=== PATIENT | male | born 1950 | race Caucasian/White ===

== ENCOUNTER 2018-01-26 08:30 | Inpatient (IN) ==
[2018-01-26 09:30] LABS: Bilirubin,Urine Small (Negative); Blood,Urine Negative (Negative); Clarity,Urine Clear (Clear); Color,Urine Orange (Yellow); Glucose,Urine (UA) Normal (Normal); Ketones,Urine Trace mg/dL (Negative); Leukocyte Esterase,Urine Small (Negative); Nitrite,Urine Negative (Negative); Protein,Urine 30 mg/dL (Neg-Trace); Specific Gravity,Urine > 1.030 (1.010-1.025); Urobilinogen,Urine Normal (Normal)
[2018-01-26 09:32] LABS: Hyaline Casts,Urine Few per lpf (None-Few); RBC,Urine 15-30 per hpf (0-3); Squamous Epithelial Cell,Urine Many per lpf (None-Few)
--- NOTE | 2018-01-26 09:33 | Emergency Department Note ---
Disposition Clinical Impression: Pneumonia Disposition: Admitted As Inpatient Referrals: Isabella Weiner MD [Primary Care Provider] - Forms: ED Satisfaction Letter SOB HPI - General Chief Complaint: ED Shortness of Breath/Dyspnea Stated Complaint: "TARA" Time Seen by Provider: 01/26/18 08:59 Source: patient Limitations: no limitations Nursing Notes Reviewed: Yes Vital Signs Reviewed: Yes - History of Present Illness 67-year-old male presents with shortness of breath. Patient stated the symptoms started on (5 days ago). It was gradually worsening. Associated with tightness of the chest on right side. Patient reported mild dry cough prior to shortness breath. Patient's reported patient seems a little confused today. Patient had a septic pneumonia 4 years ago. He was on inhaler since pain. Patient is a previous smoker. He quit smoking 20 years ago. He has never been diagnosed with COPD. His not on home oxygen. History of hypertension and back surgery. Denied past history of PE or DVT. Pt Subjective Complaint: shortness of breath, chest pain Onset (ago): day(s) (5) Severity: severe Consistency/Duration: constant, gradually worsening Known history of: other (septic pneumonia 4 years ago) Associated symptoms: Reports: other (confused) - Related Data Home Medications Medication Instructions Recorded Confirmed Atenolol [Tenormin] 25 mg PO DAILY 01/26/18 01/26/18 Atorvastatin [Lipitor] 40 mg PO HS 01/26/18 01/26/18 Gabapentin [Neurontin] 600 mg PO HS 01/26/18 01/26/18 Ibuprofen [Motrin] 600 mg PO Q8HR PRN 01/26/18 01/26/18 Tramadol HCl [Ultram] 100 mg PO TID PRN 01/26/18 01/26/18 Zolpidem [Ambien] 10 mg PO HS 01/26/18 01/26/18 amLODIPine [Norvasc] 5 mg PO DAILY 01/26/18 01/26/18 Allergies Allergy/AdvReac Type Severity Reaction Status Date / Time adhesive AdvReac Rash Verified 01/26/18 10:51 levofloxacin [From Levaquin] AdvReac Rash Verified 01/26/18 10:51 Constitutional: Denies: fever, chills, weakness, weight change Eyes: Denies: eye pain, eye discharge, vision change ENT ED: Denies: ear pain, throat pain, dental pain, hearing loss, epistaxis, congestion, dysphagia Cardiovascular: Reports: chest pain. Denies: palpitations, dyspnea on exertion , edema, syncope Respiratory: Reports: cough, dyspnea. Denies: wheezes, hemoptysis, stridor Gastrointestinal: Denies: abdominal pain, nausea, vomiting, diarrhea, constipation, hematemesis, melena, hematochezia Genitourinary: Denies: urgency, dysuria, frequency, hematuria Musculoskeletal: Denies: back pain, neck pain, arthralgia, myalgia Integumentary: Denies: rash, abrasion, lesions Neurological: Reports: confusion. Denies: headache, weakness, numbness, paresthesias, abnormal gait, vertigo Psychiatric: Denies: anxiety, depression, suicidal thoughts, homicidal thoughts , auditory hallucinations, visual hallucinations Endocrine: Denies: fatigue Hematological/Lymphatic: Denies: easy bleeding, easy bruising Allergic/Immunologic: Denies: facial swelling, urticaria Past Medical History - Past Medical History Medical history: Reports: no medical history Psychiatric history: Reports: no psych history - Social History Smoking Status: Never smoker Alcohol use: Reports: none Drug use: Reports: none Physical Exam - General Limitations: no limitations General appearance: alert, in no apparent distress - Head Head exam: atraumatic, normal inspection - Eye Eye exam: Present: normal appearance. Absent: scleral icterus, conjunctival injection - ENT ENT exam: normal exam, normal external ear exam - Neck Neck exam: Present: normal inspection, full ROM, trachea midline. Absent: tenderness - Chest Chest inspection: Present: normal inspection, symmetric chest wall rise. Absent : tenderness - Respiratory Respiratory exam: Present: normal lung sounds bilaterally, respiratory distress. Absent: wheezes - Cardiovascular Cardiovascular exam: Present: regular rate, normal rhythm - Abdominal Exam Abdominal exam: Present: soft, Non-Tender - Extremities Exam Extremities exam: Present: normal inspection, full ROM. Absent: tenderness - Back Exam Back exam: Present: normal inspection, full ROM. Absent: tenderness - Neurological Exam Neurological exam: Present: alert, oriented X3 - Psychiatric Psychiatric exam: Present: normal affect, normal mood - Skin Skin exam: Present: warm, dry, intact, normal color Course Vital Signs Temperature 98.6 F 01/26/18 08:34 Pulse Rate 101 01/26/18 08:34 Respiratory Rate 24 06/19/18 08:34 Blood Pressure 124/77 01/26/18 08:34 O2 Sat by Pulse Oximetry 88 01/26/18 08:34 Temperature 98.2 F 01/26/18 09:17 Pulse Rate 95 01/26/18 13:51 Respiratory Rate 18 01/26/18 13:51 Blood Pressure 127/88 01/26/18 13:51 O2 Sat by Pulse Oximetry 93 01/26/18 13:51 Oxygen Delivery Oxygen Delivery Nasal Cannula Shortness of Breath/Dyspnea - [facility] Narrative Medical decision making narrative: 67-year-old male presents with worsening shortness of breath for 5 days. Associated with right sided chest tightness and mild confusion today. No chills and fever. No recently hospitalized duration. History of pneumonia with sepsis. Physical exam: O2 sat 88 in room air, 93 with 2 L NS, Alert and oriented, lethargic, bilateral lungs sound clear to me, mild tachycardia with heart rate 100. No other focal neurology deficit. Labs: White cell 24 and left shifted, elevated d-dimer 2155, lactic acid normal. Chest x-ray indicated right lung pneumonia, chest CTA ruled out PE and confirmed pneumonia. Head CT unremarkable. Impression pneumonia with hypoxia. Patient will be admitted to hospital. Antibiotics started in ER. 14:[address] Baltazar ( hospitalist), patient is accepted to medical surgical floor. - Lab Data Lab results reviewed: Yes I reviewed the patient's lab results. Result diagrams: 01/26/18 09:30 01/26/18 09:30 Lab Results 01/26/18 01/26/18 01/26/18 Range/Units 08:52 09:30 09:30 WBC 24.5 H (4.3-11.1) K/mcL RBC 4.09 L (4.19-5.50) M/mcL Hgb 13.0 (12.9-16.9) g/dL Hct 37.4 L (37.5-50.1) % MCV 91.4 (83.0-100.0) fL MCH 31.8 (28.0-33.3) pg MCHC 34.8 (31.6-35.5) g/dL RDW 12.4 (11.5-14.5) % Plt Count 260 (140-400) K/mcL MPV 11.4 (9.4-12.4) fL Seg Neutrophils % 82.0 % Band Neutrophils % 12.0 H (0-4) % Lymphocytes % Test Not Performed Monocytes % 6.0 % Neutrophils # 23.0 H (1.6-8.9) K/mcL Lymphocytes # RU[employer]PLIC[employer] Monocytes # 1.5 H (0.0-1.3) K/mcL Toxic Vacuolation Present A (Not Present) Platelet Estimate Normal (Normal) D-Dimer 2155 H (0-500) ng/mLFEU Sodium (136-145) mEq/L Potassium (3.5-5.1) mEq/L Chloride (98-107) mEq/L Carbon Dioxide (23-29) mEq/L BUN (8-23) mg/dL Creatinine (0.70-1.30) mg/dL Est GFR ( Amer) (> 60) Est GFR (Non-Af Amer) (> 60) BUN/Creatinine Ratio (6-26) Glucose (70-105) mg/dL Calculated Osmolality (280-300) Lactic Acid (0.5-2.2) mmol/L Calcium (8.6-10.3) mg/dL Total Bilirubin (0.3-1.0) mg/dL AST (13-39) Units/L ALT (7-52) Units/L Alkaline Phosphatase (34-104) Units/L Troponin I (< 0.04) ng/mL Serum Total Protein (6.4-8.9) g/dL Albumin (3.5-5.7) g/dL Globulin (2.4-3.5) g/dL Albumin/Globulin Ratio (1.1-2.2) Urine Color [place] A (Yellow) Urine Clarity Clear (Clear) Urine pH 6.0 (5.0-8.0) pH Units Ur Specific [place] > 1.030 H (1.010-1.025) Urine Protein 30 H (Neg-Trace) mg/dL Urine Glucose (UA) Normal (Normal) mg/dL Urine Ketones Trace H (Negative) mg/dL Urine Blood Negative (Negative) Urine Nitrite Negative (Negative) Urine Bilirubin Small H (Negative) Urine Urobilinogen Normal (Normal) mg/dL Ur Leukocyte Esterase Small H (Negative) Urine Microscopic RBC 15-30 H (0-3) per hpf Urine Microscopic WBC 5-15 H (0-3) per hpf Ur Squamous Epith Cells Many H (None-Few) per lpf Urine Bacteria Moderate H (None-Few) per hpf Hyaline Casts Few (None-Few) per lpf Granular Casts Few H (None Seen) per lpf WBC Casts Few H (None Seen) per lpf Urine Mucus Many H (Few) Ur Culture Indicated? NO. A (NO) 01/26/18 01/26/18 Range/Units 09:30 12:45 WBC (4.3-11.1) K/mcL RBC (4.19-5.50) M/mcL Hgb (12.9-16.9) g/dL Hct (37.5-50.1) % MCV (83.0-100.0) fL MCH (28.0-33.3) pg MCHC (31.6-35.5) g/dL RDW (11.5-14.5) % Plt Count (140-400) K/mcL MPV (9.4-12.4) fL Seg Neutrophils % % Band Neutrophils % (0-4) % Lymphocytes % Monocytes % % Neutrophils # (1.6-8.9) K/mcL Lymphocytes # Monocytes # (0.0-1.3) K/mcL Toxic Vacuolation (Not Present) Platelet Estimate (Normal) D-Dimer (0-500) ng/mLFEU Sodium 138 (136-145) mEq/L Potassium 3.3 L (3.5-5.1) mEq/L Chloride 105 (98-107) mEq/L Carbon Dioxide 19 L (23-29) mEq/L BUN 18 (8-23) mg/dL Creatinine 0.85 (0.70-1.30) mg/dL Est GFR ( Amer) > 60 (> 60) Est GFR (Non-Af Amer) > 60 (> 60) BUN/Creatinine Ratio 21 (6-26) Glucose 110 H (70-105) mg/dL Calculated Osmolality 289 (280-300) Lactic Acid 1.3 (0.5-2.2) mmol/L Calcium 9.1 (8.6-10.3) mg/dL Total Bilirubin 1.3 H (0.3-1.0) mg/dL AST 16 (13-39) Units/L ALT 18 (7-52) Units/L Alkaline Phosphatase 86 (34-104) Units/L Troponin I 0.03 (< 0.04) ng/mL Serum Total Protein 6.5 (6.4-8.9) g/dL Albumin 3.3 L (3.5-5.7) g/dL Globulin 3.2 (2.4-3.5) g/dL Albumin/Globulin Ratio 1.0 L (1.1-2.2) Urine Color (Yellow) Urine Clarity (Clear) Urine pH (5.0-8.0) pH Units Ur Specific [place] (1.010-1.025) Urine Protein (Neg-Trace) mg/dL Urine Glucose (UA) (Normal) mg/dL Urine Ketones (Negative) mg/dL Urine Blood (Negative) Urine Nitrite (Negative) Urine Bilirubin (Negative) Urine Urobilinogen (Normal) mg/dL Ur Leukocyte Esterase (Negative) Urine Microscopic RBC (0-3) per hpf Urine Microscopic WBC (0-3) per hpf Ur Squamous Epith Cells (None-Few) per lpf Urine Bacteria (None-Few) per hpf Hyaline Casts (None-Few) per lpf Granular Casts (None Seen) per lpf WBC Casts (None Seen) per lpf Urine Mucus (Few) Ur Culture Indicated? (NO) - Radiology Data Radiology results reviewed: Yes I reviewed the patient's radiology results. TECHNIQUE: CTA of the chest was performed after the administration of intravenous contrast. Multiplanar reformatted images are provided for review. MIP images are provided for review. Dose modulation, iterative reconstruction, and/or weight based adjustment of the mA/kV was utilized to reduce the radiation dose to as low as reasonably achievable. COMPARISON: Chest x-ray done today HISTORY: ORDERING SYSTEM PROVIDED HISTORY: d-dimer >2000 72 ml of ISOVUE 370 FINDINGS: Pulmonary Arteries: Pulmonary arteries are adequately opacified for evaluation. No evidence of intraluminal filling defect to suggest pulmonary embolism. Main pulmonary artery is normal in caliber. Mediastinum: There is right hilar adenopathy likely reactive in nature. The right hilar node measures 1.4 cm in diameter. There is a subcarinal node measuring 1.4 cm in diameter. These are likely reactive in nature. No additional adenopathy is seen. Mild atherosclerotic disease seen in the aorta and coronary arteries. Lungs/pleura: There is consolidation seen involving nearly the entire right lower lobe consistent with pneumonia. Remainder of the lung parenchyma is clear and without disease. Upper Abdomen: Limited images of the upper abdomen are unremarkable. Soft Tissues/Bones: No acute bone or soft tissue abnormality. CT/CT angio chest IMPRESSION: Right lower lobe pneumonia with reactive adenopathy No evidence for pulmonary emboli
[2018-01-26 09:54] LABS: Bacteria,Urine Moderate per hpf (None-Few); Granular Casts,Urine Few per lpf (None Seen); Mucus,Urine Many (Few); White Blood Cell Casts,Urine Few per lpf (None Seen)
[2018-01-26 10:03] LABS: Hematocrit 37.4 % (37.5-50.1); Mean Corpuscular HGB Conc 34.8 g/dL (31.6-35.5); Mean Corpuscular Hemoglobin 31.8 pg (28.0-33.3); Mean Corpuscular Volume 91.4 fL (83.0-100.0); Mean Platelet Volume 11.4 fL (9.4-12.4); Platelet Count 260 K/mcL (140-400); Red Blood Count 4.09 M/mcL (4.19-5.50); Red Cell Distribution Width 12.4 % (11.5-14.5)
[2018-01-26 10:18] LABS: Alanine Aminotransferase 18 Units/L (7-52); Albumin 3.3 g/dL (3.5-5.7); Alkaline Phosphatase 86 Units/L (34-104); Aspartate Amino Transferase 16 Units/L (13-39); BUN/Creatinine Ratio 21 (6-26); Bilirubin,Total 1.3 mg/dL (0.3-1.0); Blood Urea Nitrogen 18 mg/dL (8-23); Calcium 9.1 mg/dL (8.6-10.3); Carbon Dioxide 19 mEq/L (23-29); Chloride 105 mEq/L (98-107); Globulin 3.2 g/dL (2.4-3.5); Glucose 110 mg/dL (70-105); Osmolality,Calculated 289 (280-300); Potassium 3.3 mEq/L (3.5-5.1); Sodium 138 mEq/L (136-145); Total Protein 6.5 g/dL (6.4-8.9); Troponin I 0.03 ng/mL (< 0.04); eGFR For African Americans > 60 (> 60); eGFR For Non-African Americans > 60 (> 60)
[2018-01-26] MEDS ORDERED: Isovue-370 500 ML INFUS..BTL IV ONE (10:18)
[2018-01-26 10:36] LABS: Monocytes # 1.5 K/mcL (0.0-1.3)
[2018-01-26 10:37] LABS: Platelet Estimate Normal (Normal)
[2018-01-26 10:38] LABS: Toxic Vacuolation Present (Not Present)
[2018-01-26] MEDS ORDERED: Piperacillin/Tazobactam 3.375 GM in 0.9 % Sodium Chloride Mini Bag 100 ML IVPB ONE (11:18)
--- NOTE | 2018-01-26 11:30 | Emergency Department Note ---
Disposition Clinical Impression: Pneumonia Qualifiers: Pneumonia type: due to unspecified organism Laterality: unspecified laterality Lung location: unspecified part of lung Qualified Code(s): J18.9 - Pneumonia, unspecified organism Disposition: Admitted As Inpatient Forms: ED Satisfaction Letter General Adult HPI - General Chief complaint: ED Shortness of Breath/Dyspnea Stated complaint: "TARA" Time Seen by Provider: 01/26/18 08:59 Source: patient Limitations: no limitations - History of Present Illness Pain Scale: 4 - Related Data Home Medications Medication Instructions Recorded Confirmed Atenolol [Tenormin] 25 mg PO DAILY 01/26/18 01/26/18 Atorvastatin [Lipitor] 40 mg PO HS 01/26/18 01/26/18 Gabapentin [Neurontin] 600 mg PO HS 01/26/18 01/26/18 Ibuprofen [Motrin] 600 mg PO Q8HR PRN 01/26/18 01/26/18 Tramadol HCl [Ultram] 100 mg PO TID PRN 01/26/18 01/26/18 Zolpidem [Ambien] 10 mg PO HS 01/26/18 01/26/18 amLODIPine [Norvasc] 5 mg PO DAILY 01/26/18 01/26/18 Allergies Allergy/AdvReac Type Severity Reaction Status Date / Time adhesive AdvReac Rash Verified 01/26/18 10:51 levofloxacin [From Levaquin] AdvReac Rash Verified 01/26/18 10:51 Constitutional: Denies: fever, chills, weakness, weight change Eyes: Denies: eye pain, eye discharge, vision change ENT ED: Denies: ear pain, throat pain, dental pain, hearing loss, epistaxis, congestion, dysphagia Cardiovascular: Reports: chest pain. Denies: palpitations, dyspnea on exertion , edema, syncope Respiratory: Reports: cough, dyspnea. Denies: wheezes, hemoptysis, stridor Gastrointestinal: Denies: abdominal pain, nausea, vomiting, diarrhea, constipation, hematemesis, melena, hematochezia Genitourinary: Denies: urgency, dysuria, frequency, hematuria Musculoskeletal: Denies: back pain, neck pain, arthralgia, myalgia Integumentary: Denies: rash, abrasion, lesions Neurological: Reports: confusion. Denies: headache, weakness, numbness, paresthesias, abnormal gait, vertigo Psychiatric: Denies: anxiety, depression, suicidal thoughts, homicidal thoughts , auditory hallucinations, visual hallucinations Endocrine: Denies: fatigue Hematological/Lymphatic: Denies: easy bleeding, easy bruising Allergic/Immunologic: Denies: facial swelling, urticaria Past Medical History - Past Medical History Medical history: Reports: no medical history Psychiatric history: Reports: no psych history - Social History Smoking Status: Never smoker Alcohol use: Reports: none Drug use: Reports: none Physical Exam - General Limitations: no limitations General appearance: alert, in no apparent distress Course Vital Signs Temperature 98.6 F 01/26/18 08:34 Pulse Rate 101 01/26/18 08:34 Respiratory Rate 24 01/26/18 08:34 Blood Pressure 124/77 01/26/18 08:34 O2 Sat by Pulse Oximetry 88 01/26/18 08:34 Temperature 98.2 F 01/26/18 09:17 Pulse Rate 76 01/26/18 10:18 Respiratory Rate 18 01/26/18 10:18 Blood Pressure 111/73 01/26/18 10:18 O2 Sat by Pulse Oximetry 93 01/26/18 10:18 Oxygen Delivery Oxygen Delivery Nasal Cannula Medical Decision Making - Lab Data Result diagrams: 01/26/18 09:30 01/26/18 09:30 Lab Results 01/26/18 01/26/18 01/26/18 Range/Units 08:52 09:30 09:30 WBC 24.5 H (4.3-11.1) K/mcL RBC 4.09 L (4.19-5.50) M/mcL Hgb 13.0 (12.9-16.9) g/dL Hct 37.4 L (37.5-50.1) % MCV 91.4 (83.0-100.0) fL MCH 31.8 (28.0-33.3) pg MCHC 34.8 (31.6-35.5) g/dL RDW 12.4 (11.5-14.5) % Plt Count 260 (140-400) K/mcL MPV 11.4 (9.4-12.4) fL Seg Neutrophils % 82.0 % Band Neutrophils % 12.0 H (0-4) % Lymphocytes % Test Not Performed Monocytes % 6.0 % Neutrophils # 23.0 H (1.6-8.9) K/mcL Lymphocytes # [employer] Monocytes # 1.5 H (0.0-1.3) K/mcL Toxic Vacuolation Present A (Not Present) Platelet Estimate Normal (Normal) D-Dimer 2155 H (0-500) ng/mLFEU Sodium (136-145) mEq/L Potassium (3.5-5.1) mEq/L Chloride (98-107) mEq/L Carbon Dioxide (23-29) mEq/L BUN (8-23) mg/dL Creatinine (0.70-1.30) mg/dL Est GFR ( Amer) (> 60) Est GFR (Non-Af Amer) (> 60) BUN/Creatinine Ratio (6-26) Glucose (70-105) mg/dL Calculated Osmolality (280-300) Calcium (8.6-10.3) mg/dL Total Bilirubin (0.3-1.0) mg/dL AST (13-39) Units/L ALT (7-52) Units/L Alkaline Phosphatase (34-104) Units/L Troponin I (< 0.04) ng/mL Serum Total Protein (6.4-8.9) g/dL Albumin (3.5-5.7) g/dL Globulin (2.4-3.5) g/dL Albumin/Globulin Ratio (1.1-2.2) Urine Color [place] A (Yellow) Urine Clarity Clear (Clear) Urine pH 6.0 (5.0-8.0) pH Units Ur Specific [place] > 1.030 H (1.010-1.025) Urine Protein 30 H (Neg-Trace) mg/dL Urine Glucose (UA) Normal (Normal) mg/dL Urine Ketones Trace H (Negative) mg/dL Urine Blood Negative (Negative) Urine Nitrite Negative (Negative) Urine Bilirubin Small H (Negative) Urine Urobilinogen Normal (Normal) mg/dL Ur Leukocyte Esterase Small H (Negative) Urine Microscopic RBC 15-30 H (0-3) per hpf Urine Microscopic WBC 5-15 H (0-3) per hpf Ur Squamous Epith Cells Many H (None-Few) per lpf Urine Bacteria Moderate H (None-Few) per hpf Hyaline Casts Few (None-Few) per lpf Granular Casts Few H (None Seen) per lpf WBC Casts Few H (None Seen) per lpf Urine Mucus Many H (Few) Ur Culture Indicated? NO. A (NO) 01/26/18 Range/Units 09:30 WBC (4.3-11.1) K/mcL RBC (4.19-5.50) M/mcL Hgb (12.9-16.9) g/dL Hct (37.5-50.1) % MCV (83.0-100.0) fL MCH (28.0-33.3) pg MCHC (31.6-35.5) g/dL RDW (11.5-14.5) % Plt Count (140-400) K/mcL MPV (9.4-12.4) fL Seg Neutrophils % % Band Neutrophils % (0-4) % Lymphocytes % Monocytes % % Neutrophils # (1.6-8.9) K/mcL Lymphocytes # Monocytes # (0.0-1.3) K/mcL Toxic Vacuolation (Not Present) Platelet Estimate (Normal) D-Dimer (0-500) ng/mLFEU Sodium 138 (136-145) mEq/L Potassium 3.3 L (3.5-5.1) mEq/L Chloride 105 (98-107) mEq/L Carbon Dioxide 19 L (23-29) mEq/L BUN 18 (8-23) mg/dL Creatinine 0.85 (0.70-1.30) mg/dL Est GFR ( Amer) > 60 (> 60) Est GFR (Non-Af Amer) > 60 (> 60) BUN/Creatinine Ratio 21 (6-26) Glucose 110 H (70-105) mg/dL Calculated Osmolality 289 (280-300) Calcium 9.1 (8.6-10.3) mg/dL Total Bilirubin 1.3 H (0.3-1.0) mg/dL AST 16 (13-39) Units/L ALT 18 (7-52) Units/L Alkaline Phosphatase 86 (34-104) Units/L Troponin I 0.03 (< 0.04) ng/mL Serum Total Protein 6.5 (6.4-8.9) g/dL Albumin 3.3 L (3.5-5.7) g/dL Globulin 3.2 (2.4-3.5) g/dL Albumin/Globulin Ratio 1.0 L (1.1-2.2) Urine Color (Yellow) Urine Clarity (Clear) Urine pH (5.0-8.0) pH Units Ur Specific [place] (1.010-1.025) Urine Protein (Neg-Trace) mg/dL Urine Glucose (UA) (Normal) mg/dL Urine Ketones (Negative) mg/dL Urine Blood (Negative) Urine Nitrite (Negative) Urine Bilirubin (Negative) Urine Urobilinogen (Normal) mg/dL Ur Leukocyte Esterase (Negative) Urine Microscopic RBC (0-3) per hpf Urine Microscopic WBC (0-3) per hpf Ur Squamous Epith Cells (None-Few) per lpf Urine Bacteria (None-Few) per hpf Hyaline Casts (None-Few) per lpf Granular Casts (None Seen) per lpf WBC Casts (None Seen) per lpf Urine Mucus (Few) Ur Culture Indicated? (NO) Attestation Statement - Attestation Attestation: I examined this patient and my medical decision-making was reviewed with the Resident Physician. I agree with the documented findings, disposition and treatment plan as described except to the extent set forth below. 67 year old male with history of sepsis seoncdary to pneumonia four years ago presnetes in a simliar fashion and meets SIRS criteria with tachy and elevated WBC. Patient states that he has been feeling increased more fatigued and also has an elevated D-dimer which will require a CTA chest to rule out PE. [place] ahs limited access thus we will consult PICC line team for access. WE have started zosyn tehrapy secondary to his allearyg to levaquin in addition he denies any history of DVTs/PEs , recent hospitalization or [facility] admission. WE will admi tot medicine after CTA chest
[2018-01-26] MEDS ORDERED: Ipratropium/Albuterol Neb 3 ML IH PRN (16:23)
--- NOTE | 2018-01-26 16:36 | Internal Med History&Physical ---
Date of Encounter: 01/26/18 Time of Encounter: 16:35 Internal Medicine - H&P: HPI Admitted From: Home Plans for Post Hospital Care: Home History of present illness: Mr. Campbell is a 67 year old male presented with shortness of breath that started a few days ago and got worse until this morning. He also had some tightness on the right side of the chest. In the emergency department patient was found to be hypoxic. He denied having any history of COPD but he does use inhaler twice daily was prescribed by his PCP. Patient is a remote smoker and quit smoking about 20 years ago. He has never been diagnosed with COPD. He denied any headache, blurry vision, abdominal pain, diarrhea or constipation. Past Med Surg Social Fam HX - Past Medical History Medical history: hypertension Additional medical history: pneumonia Psychiatric history: no psych history - Past Surgical History Surgical History: appendectomy Additional surgical history: knee replacement, gloria ksurgery - Social History Smoking Status: Former smoker Smokeless Tobacco Status: No Alcohol use: none Drug use: none - Family History Mother Hx Family Cardiac Disorders: Yes Father Hx Family Cardiac Disorders: Yes Internal Medicine - H&P: Meds Atenolol [Tenormin] 25 mg PO DAILY 01/26/18 [History] Atorvastatin [Lipitor] 40 mg PO HS 01/26/18 [History] Gabapentin [Neurontin] 600 mg PO HS 01/26/18 [History] Ibuprofen [Motrin] 600 mg PO Q8HR PRN 01/26/18 [History] Tramadol HCl [Ultram] 100 mg PO TID PRN 01/26/18 [History] Zolpidem [Ambien] 10 mg PO HS 01/26/18 [History] amLODIPine [Norvasc] 5 mg PO DAILY 01/26/18 [History] 3 Allergy/AdvReac Type Severity Reaction Status Date / Time adhesive AdvReac Rash Verified 01/26/18 10:51 levofloxacin [From Levaquin] AdvReac Rash Verified 01/26/18 10:51 All Systems PM: A 10-system review of systems was performed and is negative for pertinent findings except as documented above in the HPI. Review of systems: Comprehensive 10 point review of system was done and it was negative other than what was mentioned above - Constitutional Vitals: Temp Pulse Resp BP Pulse Ox 98.2 F 95 18 127/88 93 01/26/18 09:17 01/26/18 13:51 01/26/18 13:51 01/26/18 13:51 01/26/18 13:51 General appearance: Present: A&O X 3 - Head Head exam: Present: atraumatic, normocephalic - Eye Eye exam: Present: PERRL, conjuntiva pink, sclera anicteric Pupils: Present: PERRL - Neck Neck exam general surgery: Present: supple, trachea midline. Absent: lymphadenopathy - Respiratory Additional comments: Diminished breath sounds bibasilarly mostly on the right - Cardiovascular Cardiovascular exam: Present: RRR, +S1, +S2. Absent: diastolic murmur, gallop, rubs, systolic murmur - GI/Abdominal GI/Abdominal exam: Present: normal bowel sounds, soft, no peritoneal signs. Absent: distended, tenderness - Neurological Exam Neurological exam: Present: CN II-XII intact, oriented X3, no focal deficits. Absent: pronater drift, facial droop, speech deficit - Skin Skin exam: Present: dry, intact Internal Med - H&P Results - Labs CBC & Chem 7: 01/26/18 09:30 01/26/18 09:30 - Assessment and plan (1) SIRS (systemic inflammatory response syndrome) Current Visit: Yes Status: Acute Assessment and plan: Due to pneumonia. Patient has leukocytosis with bandemia Blood culture and sputum culture Start antibiotics with Zosyn and azithromycin Check lactic acid level. Check pro calcitonin Breathing treatment (2) Pneumonia Current Visit: Yes Status: Acute Assessment and plan: Start antibiotics with Zosyn and azithromycin as mentioned above Breathing treatment every 6 hours and when necessary Check pro calcitonin level. Check lactic acid level CTA chest was negative for PE, showed right lower lobe infiltrates Follow blood cultures and sputum cultures Check Legionella urine antigen and pneumococcal urine antigen Follow CBC Qualifiers: Pneumonia type: due to unspecified organism Laterality: right Lung location: lower lobe of lung Qualified Code(s): J18.1 - Lobar pneumonia, unspecified organism (3) Leukocytosis Current Visit: Yes Status: Acute Assessment and plan: Continue antibiotics as above Follow cultures Follow labs Qualifiers: Leukocytosis type: bandemia Qualified Code(s): D72.825 - Bandemia (4) Hypokalemia Current Visit: Yes Status: Acute Assessment and plan: Mild hypokalemia Replaced Monitor labs and replace lytes as needed (5) History of hypertension Current Visit: Yes Status: Acute Assessment and plan: Continue home antihypertensives Monitor BP (6) On esomeprazole prophylaxis Current Visit: Yes Status: Acute (7) DVT prophylaxis Current Visit: Yes Status: Acute - Time Spent With Patient Total time spent is greater than 50% in coordination of care (as documented) at patient's floor/unit and/or counseling patient:
[2018-01-26] MEDS: Azithromycin 500 MG in D5% in Water 250 ML IVPB SCH (17:17)
[2018-01-26] MEDS: Ipratropium/Albuterol Neb 3 ML IH SCH ×2 (19:43→23:30)
[2018-01-26] MEDS: Gabapentin 300 MG CAPSULE PO SCH (20:29)
[2018-01-26] MEDS: Piperacillin/Tazobactam 3.375 GM in 0.9 % Sodium Chloride Mini Bag 100 ML IVPB SCH (20:29)
[2018-01-26] MEDS: traMADol 50 MG TABLET PO PRN (20:30)
[2018-01-26] MEDS: Acetaminophen 325 MG TABLET PO PRN (20:31)
[2018-01-26] MEDS: Ibuprofen 600 MG TABLET PO PRN (23:50)
[2018-01-27] MEDS: Ipratropium/Albuterol Neb 3 ML IH SCH ×6 (03:35→23:59)
[2018-01-27] MEDS: *HR* Enoxaparin 40 MG/0.4 ML SYRINGE SQ SCH (05:39)
[2018-01-27] MEDS: Piperacillin/Tazobactam 3.375 GM in 0.9 % Sodium Chloride Mini Bag 100 ML IVPB SCH ×2 (05:40→10:59)
[2018-01-27 06:02] LABS: Basophils % 0.2 %; Eosinophils % 0.2 %; Hematocrit 27.1 % (37.5-50.1); Hemoglobin 9.1 g/dL (12.9-16.9); Immature Granulocytes % 1.5 % (0-4); Immature Platelets 4.9 % (1.1-6.1); Lymphocytes # 0.5 K/mcL (0.6-4.6); Lymphocytes % 3.1 %; Mean Corpuscular HGB Conc 33.6 g/dL (31.6-35.5); Mean Corpuscular Hemoglobin 31.7 pg (28.0-33.3); Mean Corpuscular Volume 94.4 fL (83.0-100.0); Mean Platelet Volume 11.2 fL (9.4-12.4); Monocytes # 1.2 K/mcL (0.0-1.3); Monocytes % 7.1 %; Neutrophils # 15.3 K/mcL (1.6-8.9); Platelet Count 205 K/mcL (140-400); Red Blood Count 2.87 M/mcL (4.19-5.50); Red Cell Distribution Width 12.7 % (11.5-14.5); Segmented Neutrophils % 87.9 %
[2018-01-27 06:13] LABS: BUN/Creatinine Ratio 21 (6-26); Blood Urea Nitrogen 18 mg/dL (8-23); Calcium 8.3 mg/dL (8.6-10.3); Carbon Dioxide 24 mEq/L (23-29); Chloride 109 mEq/L (98-107); Glucose 130 mg/dL (70-105); Osmolality,Calculated 296 (280-300); Potassium 3.5 mEq/L (3.5-5.1); Sodium 141 mEq/L (136-145); eGFR For African Americans > 60 (> 60); eGFR For Non-African Americans > 60 (> 60)
[2018-01-27] MEDS: amLODIPine 5 MG TABLET PO SCH (08:42)
[2018-01-27 10:38] LABS: Hematocrit 37.9 % (37.5-50.1); Hemoglobin 13.2 g/dL (12.9-16.9)
[2018-01-27] MEDS: Acetaminophen 325 MG TABLET PO PRN (10:58)
--- NOTE | 2018-01-27 14:51 | Electrocardiograph Report ---
[facility] Test Date: 2018-01-26 Pat Name: Donal Campbell Department: 103 Room: 3B32 Gender: M [employer]communications Sales Representative: : 1950 Requested By: Rajinder De La Torre Order Number: [id number] Reading MD: Josesito Horne Measurements Intervals [place] Rate: 81 P: 30 AL: 151 QRS: 17 QRSD: 98 T: 13 QT: 361 QTc: 399 Interpretive Statements SINUS RHYTHM WARNING: DATA QUALITY MAY AFFECT INTERPRETATION Electronically Signed On 01-27-2018 14:49:34 EDT by Josesito Horne
--- NOTE | 2018-01-27 15:45 | Internal Med Progress Note ---
Date of Encounter: 01/27/18 Time of Encounter: 10:05 - Assessment and plan (1) History of hypertension Current Visit: Yes Status: Chronic Assessment and plan: Chronic. Well controlled. Continue home medications. (2) Hypokalemia Current Visit: Yes Status: Resolved Assessment and plan: Resolved (3) Leukocytosis Current Visit: Yes Status: Acute Assessment and plan: Secondary to pneumonia. Improving. Continue IV antibiotics Blood and sputum cultures pending Continue to monitor labs. Qualifiers: Leukocytosis type: bandemia Qualified Code(s): D72.825 - Bandemia (4) On esomeprazole prophylaxis Current Visit: Yes Status: Acute (5) Pneumonia Current Visit: Yes Status: Acute Assessment and plan: Patient presented to the emergency department with shortness of breath that began 3-4 days prior to arrival, increasing in severity until the morning of admission. Family reports that he is been feeling fatigued while on a family vacation. Patient is requiring supplemental oxygen, does not normally wear oxygen at home. Patient was found to be hypoxic on arrival, patient using 4 L to maintain sats greater than 92%. Patient reports sometimes productive cough. Lungs are diminished with rhonchi heard in bilateral posterior bases. Continue IV Rocephin and Zithromax, duo nebs every 4 hours scheduled, guaifenesin milligrams by mouth twice daily. Continue to monitor labs and cultures Continue telemetry O2 as needed to maintain sats greater than 92% Qualifiers: Pneumonia type: due to unspecified organism Laterality: right Lung location: lower lobe of lung Qualified Code(s): J18.1 - Lobar pneumonia, unspecified organism (6) SIRS (systemic inflammatory response syndrome) Current Visit: Yes Status: Acute Assessment and plan: Secondary to pneumonia. Patient continues to have leukocytosis, fever. Patient has no tachycardia, no tachypnea, is normotensive. Continue IV antibiotics, continue to monitor labs and vital signs, patient condition. (7) Lumbar degenerative disc disease Current Visit: Yes Status: Chronic Assessment and plan: Chronic. Stable. Continue home pain medications as needed. (8) DVT prophylaxis Current Visit: Yes Status: Acute Assessment and plan: Lovenox (9) Acute respiratory failure with hypoxia Current Visit: Yes Status: Acute Assessment and plan: Secondary to pneumonia. Patient is requiring supplemental oxygen maintain sats greater than 92%. Patient does not normally wear oxygen at home. Continue pulse ox and telemetry Plan as above - Time Spent With Patient Total time spent is greater than 50% in coordination of care (as documented) at patient's floor/unit and/or counseling patient: less than 15 minutes - Subjective Interval history: Patient was seen and assessed at 10:05 AM. is at bedside. All questions were answered. Pt states that he is feeling some better than when he arrived, but reports that he is still feeling fatigued and short of breath. He also reports that he has had right flank pain and dark urine for the last 6 days. He denies any nausea, vomiting, diarrhea, headache, blurred vision, chest pain. Discussed with patient that he will be here for a couple of days, he is aware and verbalized understanding. - Constitutional Vitals: Temp Pulse Resp BP Pulse Ox 101.5 F H 89 18 126/78 91 01/27/18 10:52 01/27/18 10:52 01/27/18 10:52 01/27/18 10:52 01/27/18 10:52 General appearance: Present: cooperative, A&O X 3, pleasant, no acute distress, answers questions appropriately - Head Head exam: Present: atraumatic, normal inspection, normocephalic - Eye Eye exam: Present: normal appearance, conjuntiva pink, sclera anicteric - Neck Neck exam general surgery: Present: supple, trachea midline. Absent: lymphadenopathy, tenderness - Respiratory Respiratory exam: Present: CTAB. Absent: accessory muscle use, rales, rhonchi, wheezes - Cardiovascular Cardiovascular exam: Present: RRR, +S1, +S2. Absent: diastolic murmur, gallop, rubs, systolic murmur - GI/Abdominal GI/Abdominal exam: Present: normal bowel sounds, soft. Absent: distended, hepatomegaly, tenderness - Extremities Exam Extremities exam: Present: warm, radial pulses palpable and symmetrical. Absent : calf tenderness, cyanotic, pedal edema - Neurological Exam Neurological exam: Present: alert, oriented X3, no focal deficits. Absent: facial droop, speech deficit - Skin Skin exam: Present: dry, intact, normal color, warm. Absent: rash Internal Medicine: Result - Labs CBC & Chem 7: 01/27/18 10:23 01/27/18 05:30 Labs: Short CBC 01/27/18 01/27/18 Range/Units 05:30 10:23 WBC 17.4 H (4.3-11.1) K/mcL Hgb 9.1 L D 13.2 D (12.9-16.9) g/dL Hct 27.1 L 37.9 (37.5-50.1) % Plt Count 205 (140-400) K/mcL Neutrophils # 15.3 H (1.6-8.9) K/mcL BMP 01/27/18 05:30 Sodium 141 Potassium 3.5 Chloride 109 H Carbon Dioxide 24 BUN 18 Creatinine 0.86 Glucose 130 H Calcium 8.3 L - ABG Interpretation ABG results: PT/INR, D-dimer D-Dimer 2155 ng/mLFEU (0-500) H 01/26/18 09:30 - Impressions Impressions Chest X-Ray 01/27/18 04:17 IMPRESSION: No interval change of right lower lobe pneumonia. D/ / Paula Camargo MD / Paula Camargo MD Interpreting Provider: Paula Camargo MD Consult Discharge Plan - Plan Referrals: Isabella Weiner MD [Primary Care Provider] -
[2018-01-27] MEDS: cefTRIAXone 1,000 MG in Water for inj. (sterile) 20 ML 10 ML IVP SCH (16:38)
[2018-01-27] MEDS: Azithromycin 500 MG in D5% in Water 250 ML IVPB SCH (16:39)
[2018-01-27] MEDS: Ibuprofen 600 MG TABLET PO PRN (21:00)
[2018-01-27] MEDS: Gabapentin 300 MG CAPSULE PO SCH (21:01)
[2018-01-28] MEDS: Ipratropium/Albuterol Neb 3 ML IH SCH ×6 (03:57→23:40)
[2018-01-28] MEDS: *HR* Enoxaparin 40 MG/0.4 ML SYRINGE SQ SCH (05:22)
[2018-01-28 06:18] LABS: BUN/Creatinine Ratio 24 (6-26); Blood Urea Nitrogen 16 mg/dL (8-23); Carbon Dioxide 20 mEq/L (23-29); Chloride 111 mEq/L (98-107); Glucose 111 mg/dL (70-105); Osmolality,Calculated 294 (280-300); Potassium 3.7 mEq/L (3.5-5.1); Sodium 141 mEq/L (136-145); eGFR For African Americans > 60 (> 60); eGFR For Non-African Americans > 60 (> 60)
[2018-01-28 06:35] LABS: Basophils # 0.1 K/mcL (0.0-0.2); Basophils % 0.3 %; Eosinophils # 0.2 K/mcL (0.0-0.6); Hematocrit 36.7 % (37.5-50.1); Hemoglobin 12.6 g/dL (12.9-16.9); Immature Granulocytes % 1.7 % (0-4); Lymphocytes # 1.4 K/mcL (0.6-4.6); Lymphocytes % 6.6 %; Mean Corpuscular HGB Conc 34.3 g/dL (31.6-35.5); Mean Corpuscular Hemoglobin 31.8 pg (28.0-33.3); Mean Corpuscular Volume 92.7 fL (83.0-100.0); Mean Platelet Volume 11.6 fL (9.4-12.4); Monocytes # 1.8 K/mcL (0.0-1.3); Monocytes % 8.6 %; Neutrophils # 17.2 K/mcL (1.6-8.9); Platelet Count 251 K/mcL (140-400); Red Blood Count 3.96 M/mcL (4.19-5.50); Red Cell Distribution Width 12.8 % (11.5-14.5); Segmented Neutrophils % 81.8 %
[2018-01-28] MEDS: cefTRIAXone 1,000 MG in Water for inj. (sterile) 20 ML 10 ML IVP SCH (09:32)
[2018-01-28] MEDS: amLODIPine 5 MG TABLET PO SCH (09:32)
[2018-01-28 10:05] LABS: Bilirubin,Urine Negative (Negative); Blood,Urine Negative (Negative); Clarity,Urine Clear (Clear); Color,Urine Dark Yellow (Yellow); Glucose,Urine (UA) Normal (Normal); Ketones,Urine Negative (Negative); Leukocyte Esterase,Urine Negative (Negative); Nitrite,Urine Negative (Negative); PH,Urine 6.5 pH Units (5.0-8.0); Protein,Urine 30 mg/dL (Neg-Trace); Specific Gravity,Urine 1.026 (1.010-1.025); Urobilinogen,Urine Normal (Normal)
[2018-01-28 10:07] LABS: Bacteria,Urine None Seen per hpf (None-Few); Hyaline Casts,Urine None Seen per lpf (None-Few); RBC,Urine 15-30 per hpf (0-3); Squamous Epithelial Cell,Urine Many per lpf (None-Few); WBC,Urine 0-3 per hpf (0-3)
[2018-01-28 10:29] LABS: Renal Epithelial Cells,Urine Few per hpf (None-Few)
[2018-01-28 12:00] LABS: Basophils # 0.1 K/mcL (0.0-0.2); Basophils % 0.3 %; Eosinophils # 0.1 K/mcL (0.0-0.6); Eosinophils % 0.7 %; Hematocrit 37.6 % (37.5-50.1); Hemoglobin 12.9 g/dL (12.9-16.9); Immature Granulocytes % 1.3 % (0-4); Lymphocytes # 0.9 K/mcL (0.6-4.6); Lymphocytes % 5.1 %; Mean Corpuscular HGB Conc 34.3 g/dL (31.6-35.5); Mean Corpuscular Hemoglobin 31.4 pg (28.0-33.3); Mean Corpuscular Volume 91.5 fL (83.0-100.0); Mean Platelet Volume 10.9 fL (9.4-12.4); Monocytes # 1.2 K/mcL (0.0-1.3); Monocytes % 6.5 %; Neutrophils # 15.2 K/mcL (1.6-8.9); Platelet Count 295 K/mcL (140-400); Red Blood Count 4.11 M/mcL (4.19-5.50); Red Cell Distribution Width 12.9 % (11.5-14.5); Segmented Neutrophils % 86.1 %
[2018-01-28] MEDS: Acetaminophen 325 MG TABLET PO PRN ×2 (12:47→19:46)
[2018-01-28] MEDS: Azithromycin 500 MG in D5% in Water 250 ML IVPB SCH (16:04)
--- NOTE | 2018-01-28 16:56 | Internal Med Progress Note ---
Date of Encounter: 01/28/18 Time of Encounter: 09:50 - Assessment and plan (1) History of hypertension Current Visit: Yes Status: Chronic Assessment and plan: Chronic. Well controlled. Continue home medications. (2) Leukocytosis Current Visit: Yes Status: Acute Assessment and plan: Secondary to pneumonia. Increased this morning, redraw in the afternoon had improved. Continue to monitor for improved leukocytosis with new antibiotic. Continue IV antibiotics Blood culture still pending. Sputum culture negative. Continue to monitor labs. Qualifiers: Leukocytosis type: bandemia Qualified Code(s): D72.825 - Bandemia (3) On esomeprazole prophylaxis Current Visit: Yes Status: Acute (4) Pneumonia Current Visit: Yes Status: Acute Assessment and plan: Patient is intermittently still requiring supplemental oxygen, does not normally wear oxygen at home. Patient was found to be hypoxic on arrival, patient using 4 L to maintain sats greater than 92%. Patient reports sometimes productive cough. Lungs are diminished with rhonchi heard in bilateral posterior bases, some wheezing noted in bases as well. IV Rocephin and Zithromax have been stopped. Zosyn has been restarted, duo nebs every 4 hours scheduled, guaifenesin milligrams by mouth twice daily. Continue to monitor labs and cultures Continue telemetry O2 as needed to maintain sats greater than 92% Qualifiers: Pneumonia type: due to unspecified organism Laterality: right Lung location: lower lobe of lung Qualified Code(s): J18.1 - Lobar pneumonia, unspecified organism (5) SIRS (systemic inflammatory response syndrome) Current Visit: Yes Status: Acute Assessment and plan: Secondary to pneumonia. Patient continues to have leukocytosis, intermittent fever. Patient has no tachycardia, no tachypnea, is normotensive. IV antibiotics have been changed, continue to monitor labs and vital signs, patient condition. (6) Lumbar degenerative disc disease Current Visit: Yes Status: Chronic Assessment and plan: Chronic. Stable. Continue home pain medications as needed. (7) DVT prophylaxis Current Visit: Yes Status: Acute Assessment and plan: Lovenox subcutaneous (8) Acute respiratory failure with hypoxia Current Visit: Yes Status: Acute Assessment and plan: Secondary to pneumonia. Patient is intermittently still requiring supplemental oxygen maintain sats greater than 92%. Patient does not normally wear oxygen at home. Continue pulse ox and telemetry Plan as above (9) Hypokalemia Current Visit: Yes Status: Resolved Assessment and plan: Resolved. Continue to monitor. - Time Spent With Patient Total time spent is greater than 50% in coordination of care (as documented) at patient's floor/unit and/or counseling patient: less than 15 minutes - Subjective Interval history: Patient was seen and assessed at 0950 AM. Patient was alert and answered questions appropriately. He denies any nausea, vomiting, diarrhea, headache, blurred vision, chest pain. Patient denied discussed his increase in leukocytosis, fevers. I explained to him that we will be changing his antibiotic again today. He denies any questions. Later in the afternoon and received a call from primary nurse saying that the speak with me. Patient apparently had no recollection at me speaking to him earlier in the morning. Plan discussed with , questions answered. - Constitutional Vitals: Temp Pulse Resp BP Pulse Ox 99.5 F 88 16 127/79 91 01/28/18 16:15 01/28/18 16:15 01/28/18 16:15 01/28/18 16:15 01/28/18 16:15 General appearance: Present: cooperative, A&O X 3, pleasant, no acute distress, answers questions appropriately - Head Head exam: Present: atraumatic, normal inspection, normocephalic - Eye Eye exam: Present: normal appearance, conjuntiva pink, sclera anicteric - Neck Neck exam general surgery: Present: supple, trachea midline. Absent: lymphadenopathy, tenderness - Respiratory Respiratory exam: Present: decreased breath sounds, CTAB, rhonchi. Absent: accessory muscle use, chest wall tenderness, rales, respiratory distress, wheezes - Cardiovascular Cardiovascular exam: Present: RRR, +S1, +S2. Absent: diastolic murmur, gallop, rubs, systolic murmur - GI/Abdominal GI/Abdominal exam: Present: normal bowel sounds, soft. Absent: distended, hepatomegaly, tenderness - Extremities Exam Extremities exam: Present: normal capillary refill, normal inspection, warm, radial pulses palpable and symmetrical. Absent: calf tenderness, cyanotic, pedal edema, tenderness - Neurological Exam Neurological exam: Present: alert, oriented X3, no focal deficits. Absent: facial droop, speech deficit - Skin Skin exam: Present: dry, intact, normal color, warm. Absent: rash Internal Medicine: Result - Labs CBC & Chem 7: 01/28/18 11:45 01/28/18 05:38 Labs: Short CBC 01/28/18 01/28/18 Range/Units 05:38 11:45 WBC 21.1 H 17.6 H (4.3-11.1) K/mcL Hgb 12.6 L 12.9 (12.9-16.9) g/dL Hct 36.7 L 37.6 (37.5-50.1) % Plt Count 251 295 (140-400) K/mcL Neutrophils # 17.2 H 15.2 H (1.6-8.9) K/mcL BMP 01/28/18 01/28/18 05:38 07:23 Sodium 141 Potassium 3.7 Chloride 111 H Carbon Dioxide 20 L BUN 16 Creatinine 0.66 L Glucose 111 H Calcium TNP 8.1 L Urine 01/28/18 Range/Units 09:40 Urine Color Dark Yellow (Yellow) Urine Clarity Clear (Clear) Urine pH 6.5 (5.0-8.0) pH Units Ur Specific [place] 1.026 H (1.010-1.025) Urine Protein 30 H (Neg-Trace) mg/dL Urine Glucose (UA) Normal (Normal) mg/dL - ABG Interpretation ABG results: PT/INR, D-dimer D-Dimer 2155 ng/mLFEU (0-500) H 01/26/18 09:30 Consult Discharge Plan - Plan Referrals: Isabella Weiner MD [Primary Care Provider] -
[2018-01-28] MEDS: Gabapentin 300 MG CAPSULE PO SCH (20:30)
[2018-01-28] MEDS: traMADol 50 MG TABLET PO PRN (20:30)
[2018-01-28] MEDS: Ibuprofen 600 MG TABLET PO PRN (22:18)
[2018-01-28] MEDS: Piperacillin/Tazobactam 3.375 GM in 0.9 % Sodium Chloride Mini Bag 100 ML IVPB SCH (23:36)
[2018-01-29] MEDS: Ipratropium/Albuterol Neb 3 ML IH SCH ×6 (04:15→23:52)
[2018-01-29] MEDS: *HR* Enoxaparin 40 MG/0.4 ML SYRINGE SQ SCH (05:49)
[2018-01-29 06:29] LABS: Basophils # 0.1 K/mcL (0.0-0.2); Basophils % 0.7 %; Eosinophils # 0.4 K/mcL (0.0-0.6); Eosinophils % 2.9 %; Hematocrit 34.8 % (37.5-50.1); Hemoglobin 11.6 g/dL (12.9-16.9); Immature Granulocytes % 2.2 % (0-4); Lymphocytes # 0.9 K/mcL (0.6-4.6); Lymphocytes % 6.4 %; Mean Corpuscular HGB Conc 33.3 g/dL (31.6-35.5); Mean Corpuscular Hemoglobin 30.3 pg (28.0-33.3); Mean Corpuscular Volume 90.9 fL (83.0-100.0); Mean Platelet Volume 10.7 fL (9.4-12.4); Monocytes % 7.5 %; Neutrophils # 10.9 K/mcL (1.6-8.9); Platelet Count 301 K/mcL (140-400); Red Blood Count 3.83 M/mcL (4.19-5.50); Segmented Neutrophils % 80.3 %
[2018-01-29 06:49] LABS: BUN/Creatinine Ratio 16 (6-26); Blood Urea Nitrogen 10 mg/dL (8-23); Carbon Dioxide 20 mEq/L (23-29); Chloride 108 mEq/L (98-107); Glucose 117 mg/dL (70-105); Osmolality,Calculated 288 (280-300); Potassium 3.1 mEq/L (3.5-5.1); Sodium 139 mEq/L (136-145); eGFR For African Americans > 60 (> 60); eGFR For Non-African Americans > 60 (> 60)
[2018-01-29] MEDS: amLODIPine 5 MG TABLET PO SCH (08:59)
[2018-01-29] MEDS: Piperacillin/Tazobactam 3.375 GM in 0.9 % Sodium Chloride Mini Bag 100 ML IVPB SCH ×2 (09:00→17:18)
--- NOTE | 2018-01-29 13:57 | Internal Med Progress Note ---
Date of Encounter: 01/29/18 Time of Encounter: 09:25 - Assessment and plan (1) History of hypertension Current Visit: Yes Status: Chronic Assessment and plan: Chronic. Well controlled. Continue current medications. (2) Leukocytosis Current Visit: Yes Status: Acute Assessment and plan: Secondary to pneumonia. Improved this morning. Continue IV Zosyn Blood culture still pending. Sputum culture negative. Continue to monitor labs. Qualifiers: Leukocytosis type: bandemia Qualified Code(s): D72.825 - Bandemia (3) On esomeprazole prophylaxis Current Visit: Yes Status: Acute (4) Pneumonia Current Visit: Yes Status: Acute Assessment and plan: Patient is intermittently still requiring supplemental oxygen, no home 02. Patient reports sometimes productive cough. Lungs are diminished with rhonchi heard in bilateral posterior bases, improving. Continue IV Zosyn, Duonebs every 4 hours scheduled, guaifenesin 600mg by mouth twice daily. Continue to monitor labs and cultures Continue telemetry O2 as needed to maintain sats greater than 92% Qualifiers: Pneumonia type: due to unspecified organism Laterality: right Lung location: lower lobe of lung Qualified Code(s): J18.1 - Lobar pneumonia, unspecified organism (5) SIRS (systemic inflammatory response syndrome) Current Visit: Yes Status: Acute Assessment and plan: Secondary to pneumonia. Patient continues to have leukocytosis, intermittent fevers. Patient has no tachycardia, no tachypnea, is normotensive. Plan as above. (6) Lumbar degenerative disc disease Current Visit: Yes Status: Chronic Assessment and plan: Chronic. Continue Tylenol, Ultram.. (7) DVT prophylaxis Current Visit: Yes Status: Acute Assessment and plan: Lovenox SQ (8) Acute respiratory failure with hypoxia Current Visit: Yes Status: Acute Assessment and plan: Secondary to pneumonia. Patient is intermittently still requiring supplemental oxygen maintain sats greater than 92%. Continue pulse ox and telemetry Plan as above (9) Hypokalemia Current Visit: Yes Status: Resolved Assessment and plan: 3.1. Continue supplementation. Continue to monitor. - Time Spent With Patient Total time spent is greater than 50% in coordination of care (as documented) at patient's floor/unit and/or counseling patient: less than 15 minutes - Subjective Interval history: Patient was seen and assessed at 0925 AM. Patient was alert and answered questions appropriately. at bedside, all questions answered. He denies any nausea, vomiting, diarrhea, headache, blurred vision, chest pain. Plan discussed with , questions answered. - Constitutional Vitals: Temp Pulse Resp BP Pulse Ox 98.6 F 62 18 136/82 94 01/29/18 10:50 01/29/18 10:50 01/29/18 11:25 01/29/18 10:50 01/29/18 11:25 General appearance: Present: cooperative, A&O X 3, pleasant, no acute distress, answers questions appropriately - Head Head exam: Present: atraumatic, normal inspection, normocephalic - Eye Eye exam: Present: normal appearance, conjuntiva pink, sclera anicteric - Neck Neck exam general surgery: Present: supple, trachea midline. Absent: lymphadenopathy, tenderness - Respiratory Respiratory exam: Present: CTAB. Absent: accessory muscle use, rales, respiratory distress, rhonchi, wheezes - Cardiovascular Cardiovascular exam: Present: RRR, +S1, +S2. Absent: diastolic murmur, gallop, rubs, systolic murmur - GI/Abdominal GI/Abdominal exam: Present: normal bowel sounds, soft. Absent: distended, hepatomegaly, tenderness - Extremities Exam Extremities exam: Present: normal capillary refill, normal inspection, warm, radial pulses palpable and symmetrical. Absent: calf tenderness, cyanotic, pedal edema, tenderness - Neurological Exam Neurological exam: Present: alert, oriented X3, no focal deficits. Absent: pronater drift, facial droop, speech deficit - Skin Skin exam: Present: dry, intact, normal color, warm. Absent: rash Internal Medicine: Result - Labs CBC & Chem 7: 01/29/18 06:05 01/29/18 06:05 Labs: Short CBC 01/29/18 Range/Units 06:05 WBC 13.6 H (4.3-11.1) K/mcL Hgb 11.6 L (12.9-16.9) g/dL Hct 34.8 L (37.5-50.1) % Plt Count 301 (140-400) K/mcL Neutrophils # 10.9 H (1.6-8.9) K/mcL BMP 01/29/18 06:05 Sodium 139 Potassium 3.1 L Chloride 108 H Carbon Dioxide 20 L BUN 10 Creatinine 0.63 L Glucose 117 H Calcium 8.0 L - ABG Interpretation ABG results: PT/INR, D-dimer D-Dimer 2155 ng/mLFEU (0-500) H 01/26/18 09:30 Consult Discharge Plan - Plan Referrals: Isabella Weiner MD [Primary Care Provider] - 02/04/18 3:00 pm
[2018-01-29] MEDS: Ibuprofen 600 MG TABLET PO PRN (14:20)
[2018-01-29] MEDS ORDERED: Benzonatate 100 MG CAPSULE PO PRN (17:04)
[2018-01-29] MEDS: Gabapentin 300 MG CAPSULE PO SCH (20:36)
[2018-01-29] MEDS: traMADol 50 MG TABLET PO PRN (20:37)
[2018-01-30] MEDS: Piperacillin/Tazobactam 3.375 GM in 0.9 % Sodium Chloride Mini Bag 100 ML IVPB SCH ×2 (00:17→08:20)
[2018-01-30] MEDS: Ipratropium/Albuterol Neb 3 ML IH SCH ×3 (03:56→11:39)
[2018-01-30 04:55] LABS: Basophils # 0.1 K/mcL (0.0-0.2); Basophils % 0.8 %; Eosinophils # 0.5 K/mcL (0.0-0.6); Eosinophils % 4.8 %; Hematocrit 35.1 % (37.5-50.1); Hemoglobin 12.1 g/dL (12.9-16.9); Immature Granulocytes % 2.6 % (0-4); Lymphocytes # 1.1 K/mcL (0.6-4.6); Lymphocytes % 9.9 %; Mean Corpuscular HGB Conc 34.5 g/dL (31.6-35.5); Mean Corpuscular Hemoglobin 31.3 pg (28.0-33.3); Mean Corpuscular Volume 90.7 fL (83.0-100.0); Mean Platelet Volume 10.9 fL (9.4-12.4); Monocytes # 0.9 K/mcL (0.0-1.3); Neutrophils # 8.2 K/mcL (1.6-8.9); Platelet Count 304 K/mcL (140-400); Red Blood Count 3.87 M/mcL (4.19-5.50); Red Cell Distribution Width 12.9 % (11.5-14.5); Segmented Neutrophils % 73.9 %
[2018-01-30 04:58] LABS: BUN/Creatinine Ratio 17 (6-26); Blood Urea Nitrogen 10 mg/dL (8-23); Calcium 8.4 mg/dL (8.6-10.3); Carbon Dioxide 17 mEq/L (23-29); Chloride 112 mEq/L (98-107); Glucose 96 mg/dL (70-105); Osmolality,Calculated 289 (280-300); Sodium 140 mEq/L (136-145); eGFR For African Americans > 60 (> 60); eGFR For Non-African Americans > 60 (> 60)
[2018-01-30 05:06] LABS: Platelet Clumps Few (Not Present)
[2018-01-30] MEDS: *HR* Enoxaparin 40 MG/0.4 ML SYRINGE SQ SCH (05:08)
[2018-01-30 07:20] VITALS: BP 146/80
[2018-01-30] MEDS: Ibuprofen 600 MG TABLET PO PRN (08:29)
--- NOTE | 2018-01-30 11:34 | Discharge Summary ---
- NOTES TO OUTPATIENT PROVIDER Notes to Outpatient Provider: Pt was admitted for CAP and SIRS, treated with Zosyn IV. Pt was initially treated with Zithromax and Rocephin and was still having fevers. Resolved with Zosyn. Leukocytosis has resolved and pt has been afebrile. He is being discharged with Augmentin 875mg po BID x 10 days. Recommend that pt have close follow up with PCP after discharge to monitor status. Date of Encounter: 01/30/18 Time of Encounter: 10:10 - Discharge Diagnosis (1) History of hypertension Priority: Secondary Status: Chronic Assessment and Plan: Chronic. Stable. Continue home medications. (2) Leukocytosis Priority: Secondary Status: Resolved Assessment and Plan: Secondary to pneumonia. Resolved. Blood culture negative. Sputum culture negative. Qualifiers: Leukocytosis type: bandemia Qualified Code(s): D72.825 - Bandemia (3) On esomeprazole prophylaxis Priority: Secondary Status: Acute (4) Pneumonia Priority: Secondary Status: Acute Assessment and Plan: Patient is no longer requiring supplemental oxygen, no home 02. Patient reports sometimes productive cough. Lungs are diminished throughout. Patient is in no distress, there is no wheezing, rales, rhonchi. Augmentin 875 mg by mouth twice a day, guaifenesin 600 mg by mouth twice a day when necessary cough. Qualifiers: Pneumonia type: due to unspecified organism Laterality: right Lung location: lower lobe of lung Qualified Code(s): J18.1 - Lobar pneumonia, unspecified organism (5) SIRS (systemic inflammatory response syndrome) Priority: Secondary Status: Acute Assessment and Plan: Resolved (6) Lumbar degenerative disc disease Priority: Secondary Status: Chronic Assessment and Plan: Chronic. Continue home medications. (7) DVT prophylaxis Priority: Secondary Status: Acute Assessment and Plan: Lovenox (8) Acute respiratory failure with hypoxia Priority: Secondary Status: Acute Assessment and Plan: Secondary to pneumonia. Patient is intermittently still requiring supplemental oxygen maintain sats greater than 92%. Continue pulse ox and telemetry Plan as above (9) Hypokalemia Priority: Secondary Status: Resolved Assessment and Plan: 4.0 Resolved. Hospital course: Mr. Campbell is a 67 year old male with PMH including lumbar degenerative disc disease, hypertension. Patient was admitted for community-acquired pneumonia, initial antibiotic treatment did not seem to resolve, he was treated with Zosyn IV. He has returned to his baseline. He is no longer requiring supplemental oxygen, leukocytosis has resolved. Patient was admitted with sirs symptoms, there is to have resolved. Patient is going to be discharged with Augmentin 875 mg by mouth to be taken twice daily for 10 days. Physical exam is unremarkable, labs are stable and within normal limits. Vital signs are stable and within normal limits. Patient is stable and appropriate for discharge. Discharge discussed with: patient, nurse - Time Spent with Patient Total time spent providing and/or coordinating discharge services: Less than 30 minutes - Discharge Medications Prescriptions: Amoxicillin/Clavulanate [Augmentin] 875 mg PO BIDWM #20 tablet GuaiFENesin ER [Mucinex] 600 mg PO BID PRN #30 tbbp.12hr PRN Reason: Cough Home Medications: Atenolol [Tenormin] 25 mg PO DAILY 01/26/18 [History] Atorvastatin [Lipitor] 40 mg PO HS 01/26/18 [History] Gabapentin [Neurontin] 600 mg PO HS 01/26/18 [History] Ibuprofen [Motrin] 600 mg PO Q8HR PRN 01/26/18 [History] Tramadol HCl [Ultram] 100 mg PO TID PRN 01/26/18 [History] Zolpidem [Ambien] 10 mg PO HS 01/26/18 [History] amLODIPine [Norvasc] 5 mg PO DAILY 01/26/18 [History] Lisinopril [Zestril] 10 mg PO DAILY 01/28/18 [History] Amoxicillin/Clavulanate [Augmentin] 875 mg PO BIDWM #20 tablet 01/30/18 [Rx] GuaiFENesin ER [Mucinex] 600 mg PO BID PRN #30 tbbp.12hr 01/30/18 [Rx] Allergies/Adverse Reactions: 3 Allergy/AdvReac Type Severity Reaction Status Date / Time adhesive AdvReac Rash Verified 01/26/18 10:51 levofloxacin [From Levaquin] AdvReac Rash Verified 01/26/18 10:51 Date of admission: 01/26/18 20:45 Primary care physician: Isabella Weiner, Discharging clinician: Temi Cavazos Anticipated date of discharge: 01/30/18 - Constitutional Vitals: Temp Pulse Resp BP Pulse Ox 98.4 F 83 18 146/80 91 01/30/18 07:19 01/30/18 07:19 01/30/18 07:23 01/30/18 07:19 01/30/18 07:23 General appearance: Present: cooperative, A&O X 3, pleasant, no acute distress, answers questions appropriately - Head Head exam: Present: atraumatic, normal inspection, normocephalic - Eye Eye exam: Present: normal appearance, conjuntiva pink, sclera anicteric - Neck Neck exam general surgery: Present: supple, trachea midline. Absent: lymphadenopathy, tenderness - Respiratory Respiratory exam: Present: decreased breath sounds, CTAB. Absent: accessory muscle use, rales, respiratory distress, rhonchi, wheezes - Cardiovascular Cardiovascular exam: Present: RRR, +S1, +S2. Absent: diastolic murmur, gallop, rubs, systolic murmur - GI/Abdominal GI/Abdominal exam: Present: normal bowel sounds, soft. Absent: distended, hepatomegaly, tenderness - Extremities Exam Extremities exam: Present: normal capillary refill, normal inspection, warm, radial pulses palpable and symmetrical. Absent: calf tenderness, cyanotic, pedal edema, tenderness - Neurological Exam Neurological exam: Present: alert, oriented X3, no focal deficits. Absent: facial droop, speech deficit - Skin Skin exam: Present: dry, intact, normal color, warm. Absent: rash - Patient Status Disposition: Home, Self-Care Condition: Good - Discharge Instructions Follow Up With: Isabella Weiner MD [Primary Care Provider] - 02/04/18 3:00 pm Additional Instructions: Take your new medications as directed, they have been called to your pharmacy. Return to your normal diet and activities as tolerated. Resume your other medications Return to the ER as needed for any other problems or concerns, or if your symptoms return or worsen. - Diet and Activity Activity: increase activity as tolerated Diet: advance to your usual diet
[2018-01-30] MEDS: amLODIPine 5 MG TABLET PO SCH (12:34)
== END 2018-01-30 13:13 | disposition home or self-care (01) | DRG 193 ==
LOC: 3BNU 08:30 → EMEROO 08:30 → 3BNU 15:31
PROVIDERS: ADMIT Hospitalist; ATTEND Hospitalist